=== PATIENT | male | born 1980 | race African-American/Black ===

== ENCOUNTER 2019-05-19 19:43 | Emergency (ER) | payer SELFPAY, OTHER ==
[2019-05-19] MEDS: IBUPROFEN 800 MG TAB PO (22:47)
[2019-05-19] MEDS: CYCLOBENZAPRINE 10 MG TAB PO (22:47)
== END 2019-05-20 00:41 | disposition home or self-care (01) ==
LOC: FTE 05-20 00:41
DX: S20.219A Contusion of unspecified front wall of thorax, initial encounter (principal); M62.838 Other muscle spasm; V43.62XA Car passenger injured in collision with other type car in traffic accident, initial encounter
CPT/HCPCS: 71046; 72100; 73562; 99284-25